=== PATIENT | male | born 1970 | race Two or more races ===

== ENCOUNTER 2018-12-01 08:10 | Emergency (ER) | payer OTHER ==
--- NOTE | 2018-12-01 11:07 | CR ---
INDICATION: Trauma COMPARISON: None available. FINDINGS: AP and lateral views of the left foot demonstrate normal mineralization and alignment. There is a subtle linear lucency at the base of the 3rd metatarsal, seen only on the AP view. Remaining osseous structures appear intact. Incidental note of a cornuate configuration of the navicular. Dorsal soft tissue swelling. IMPRESSION: Subtle linear lucency at the base of the 3rd metatarsal, which in conjunction with midfoot soft tissue swelling and a history of trauma, is suspicious for a nondisplaced fracture. Consider an oblique view for further evaluation. Dictated by Sharad Joyner MD @ 12/01/2018 11:05:24 AM Dictated by: Sharad Joyner MD @ 12/01/2018 11:05:33 (Electronically Signed)
--- NOTE | 2018-12-06 11:40 | EDM.PDOC ---
ED HPI GENERAL MEDICAL PROBLEM - General Chief Complaint: Lower Extremity Injury/Pain Stated Complaint: INJURED LT FT Time Seen by Provider: 12/01/18 08:25 Source of Information: Reports: Patient History Limitations: Reports: No Limitations - History of Present Illness INITIAL COMMENTS - FREE TEXT/NARRATIVE: History of present illness: []Patient missed a step today around 7:30 in his foot folded underneath him he felt pop and now has swelling and pain on the top of his foot. Injuries at this time. She did take ibuprofen prior to arrival. Review of systems: As per history of present illness and below otherwise all systems reviewed and negative. Past medical history: As per history of present illness and as reviewed below otherwise noncontributory. Surgical history: As per history of present illness and as reviewed below otherwise noncontributory. Social history: No reported history of drug or alcohol abuse. Family history: As per history of present illness and as reviewed below otherwise noncontributory. Physical exam: General: Well developed, well nourished in NAD HEENT: Atraumatic, normocephalic, pupils reactive, negative for conjunctival pallor or scleral icterus, mucous membranes moist, throat clear, neck supple, nontender, trachea midline. Lungs: Clear to auscultation, breath sounds equal bilaterally, chest nontender. Heart: S1S2, regular, negative for clicks, rubs, or JVD. Abdomen: NABS, Soft, nondistended, nontender. Negative for masses or hepatosplenomegaly. Negative for costovertebral tenderness. Pelvis: Stable nontender. Genitourinary: Deferred. Rectal: Deferred. Extremities: Atraumatic, negative for cords or calf pain. Neurovascular unremarkable. Neuro: Awake, alert, oriented. Cranial nerves II through XII unremarkable. Cerebellum unremarkable. Motor and sensory unremarkable throughout. Exam nonfocal. Skin:warm and dry Diagnostics: X-ray left foot shows: Subtle linear lucency at the base of the 3rd metatarsal, which in conjunction with midfoot soft tissue swelling and a history of trauma, is suspicious for a nondisplaced fracture. Consider an oblique view for further evaluation. Therapeutics: Walking boot ED Course: Stable Impression: Left foot fracture Prescriptions: Tramadol Plan: Follow-up with Dr. wyman the podiatry office or return to ER if symptoms worsen or change. Ice elevate and ibuprofen tramadol for pain as directed. Definitive disposition and diagnosis as appropriate pending reevaluation and review of above. left foot Pain Score (Numeric/FACES): 0 - Related Data Allergies Allergy/AdvReac Type Severity Reaction Status Date / Time No Known Allergies Allergy Verified 12/01/18 08:39 Home Meds: Home Meds traMADol HCl [Tramadol HCl] 50 mg PO Q6H PRN #20 tablet 12/01/18 [Rx] Past Medical History - Infectious Disease History Infectious Disease History: Reports: Chicken Pox - Past Surgical History HEENT Surgical History: Reports: Tonsillectomy GI Surgical History: Reports: Appendectomy Social & Family History - Family History Family Medical History: Noncontributory - Tobacco Use Smoking Status *Q: Never Smoker - Recreational Drug Use Recreational Drug Use: No Review of Systems - Review of Systems Review Of Systems: See Below ED EXAM, GENERAL - Physical Exam Exam: See Below Course - Vital Signs Last Recorded V/S: Last Vital Signs Temp 97.4 F 12/01/18 08:39 Pulse 57 L 12/01/18 08:39 Resp 18 12/01/18 08:39 BP 111/70 12/01/18 08:39 Pulse Ox 96 12/01/18 08:39 Departure - Departure Time of Disposition: 09:45 Disposition: Home, Self-Care 01 Condition: Good Clinical Impression: Foot fracture, left Qualifiers: Encounter type: initial encounter Fracture type: closed Qualified Code(s): S92.902A - Unspecified fracture of left foot, initial encounter for closed fracture - Discharge Information *PRESCRIPTION DRUG MONITORING PROGRAM REVIEWED*: Not Applicable *COPY OF PRESCRIPTION DRUG MONITORING REPORT IN PATIENT ROSELINE: Not Applicable Prescriptions: traMADol HCl [Tramadol HCl] 50 mg PO Q6H PRN #20 tablet PRN Reason: Pain Instructions: Foot Sprain Referrals: John Perea MD [Primary Care Provider] - Forms: ED Department Discharge Additional Instructions: The following information is given to patients seen in the emergency department who are being discharged to home. This information is to outline your options for follow-up care. We provide all patients seen in our emergency department with a follow-up referral. The need for follow-up, as well as the timing and circumstances, are variable depending upon the specifics of your emergency department visit. If you don't have a primary care physician on staff, we will provide you with a referral. We always advise you to contact your personal physician following an emergency department visit to inform them of the circumstance of the visit and for follow-up with them and/or the need for any referrals to a consulting specialist. The emergency department will also refer you to a specialist when appropriate. This referral assures that you have the opportunity for follow-up care with a specialist. All of these measure are taken in an effort to provide you with optimal care, which includes your follow-up. Under all circumstances we always encourage you to contact your private physician who remains a resource for coordinating your care. When calling for follow-up care, please make the office aware that this follow-up is from your recent emergency room visit. If for any reason you are refused follow-up, please contact the [facility] Department at and asked to speak to the emergency department charge nurse. Take meds as directed, follow up with your primary care physician, return to ER if symptoms worsen or change. My Dr Paty Newman, DPM [address] [place] [address] [address] [place] [id number]
== END 2018-12-01 09:46 | disposition home or self-care (01) ==
LOC: MW.ED 08:10
DX: S92.902A Unspecified fracture of left foot, initial encounter for closed fracture (principal); Z98.890 Other specified postprocedural states; Z90.49 Acquired absence of other specified parts of digestive tract; W10.9XXA Fall (on) (from) unspecified stairs and steps, initial encounter
CPT/HCPCS: 73620-26-LT; 73620-LT; 99283; 99283-25